=== PATIENT | male | born 1970 | race Caucasian/White ===

== ENCOUNTER 2018-09-23 21:32 | Emergency (ER) | payer OTHER ==
[~2018-09-23] VITALS: Ht 182.9 cm; Wt 85.3 kg
[2018-09-23] MEDS ORDERED: LACTATED RINGERS 1,000 ML IV ONE ×2 (21:51→22:38)
[2018-09-23 22:09] LABS: BASOPHILS # (AUTO) 0.1 10^3/uL (0.0-0.1); BASOPHILS % (AUTO) 0 % (0-10); BILIRUBIN,URINE NEGATIVE (NEGATIVE); CLARITY,URINE CLEAR; COLOR,URINE YELLOW; EOSINOPHILS # (AUTO) 0.1 10^3/uL (0.0-0.3); EOSINOPHILS % (AUTO) 0 % (0-10); GLUCOSE, URINE (UA) NEGATIVE (NEGATIVE); HEMATOCRIT 44 % (40-54); HEMOGLOBIN 15.3 G/DL (13.3-17.7); KETONES,URINE NEGATIVE (NEGATIVE); LEUKOCYTE ESTERASE ,URINE NEGATIVE (NEGATIVE); LYMPHOCYTES # (AUTO) 1.7 X 10^3 (1.0-4.0); LYMPHOCYTES % (AUTO) 10 % (12-44); MEAN CORPUSCULAR HEMOGLOBIN 30 PG (25-34); MEAN CORPUSCULAR HGB CONC 35 G/DL (32-36); MEAN CORPUSCULAR VOLUME 86 FL (80-99); MONOCYTES # (AUTO) 1.4 X 10^3 (0.0-1.0); MONOCYTES % (AUTO) 8 % (0-12); NEUTROPHILS # (AUTO) 13.3 X 10^3 (1.8-7.8); NEUTROPHILS % (AUTO) 81 % (42-75); NITRITE,URINE NEGATIVE (NEGATIVE); PH,URINE 6 (5-9); PLATELET COUNT 372 10^3/uL (130-400); PROTEIN,URINE NEGATIVE (NEGATIVE); RED CELL DISTRIBUTION WIDTH 12.8 % (10.0-14.5); UROBILINOGEN,URINE NORMAL (NORMAL); WHITE BLOOD COUNT 16.5 10^3/uL (4.3-11.0)
[2018-09-23 22:14] LABS: BACTERIA,URINE NEGATIVE /HPF; SQUAMOUS EPITHELIAL CELL,UR RARE /HPF
[2018-09-23] MEDS ORDERED: LACTATED RINGERS 1,000 ML IV SCH (22:15)
[2018-09-23 22:21] LABS: BAND NEUTROPHILS 0 %; BASOPHILS % (MANUAL) 0 %; EOSINOPHILS % (MANUAL) 1 %; LYMPHOCYTES % (MANUAL) 17 %; MONOCYTES % (MANUAL) 8 %; NEUTROPHILS % (MANUAL) 74 %; TOXIC GRANULATION/VACUOLAZATIO 1+
[2018-09-23 22:25] LABS: ALANINE AMINOTRANSFERASE 35 U/L (0-55); ALBUMIN 4.6 GM/DL (3.2-4.5); ALKALINE PHOSPHATASE 71 U/L (40-136); BILIRUBIN,TOTAL 0.4 MG/DL (0.1-1.0); BUN/CREATININE RATIO 12; CALCIUM 9.6 MG/DL (8.5-10.1); CARBON DIOXIDE 17 MMOL/L (21-32); CHLORIDE 95 MMOL/L (98-107); CREATININE SERUM 1.14 MG/DL (0.60-1.30); GFR ESTIMATED > 60; GLUCOSE 108 MG/DL (70-105); POTASSIUM 4.6 MMOL/L (3.6-5.0); TOTAL PROTEIN 7.6 GM/DL (6.4-8.2)
[2018-09-23 22:28] LABS: SODIUM 125 MMOL/L (135-145)
--- NOTE | 2018-09-23 22:45 | ED General ---
General Chief Complaint: Exposure Stated Complaint: WEAKNESS,MUSCLE CRAMPS,DISORIENTED Nursing Triage Note: pt relates outside played tennis from 1730 to 1930 this evening. now c/o bilateral leg " cramping" says he is " disoriented and lethargic". pt alert gcs 15 with no acute sighns of dyspnea noted. pt appears anxious and is slightly hyperventilating in er. Nursing Sepsis Screen: No Definite Risk Source of Information: Patient, Family Exam Limitations: No Limitations History of Present Illness Date Seen by Provider: Sep 23, 2018 Time Seen by Provider: 22:31 Initial Comments Here with report of nausea, vomiting, muscle cramping, diarrhea and feeling a little disoriented after playing tennis in the heat for a few hours this evening. He try to stay hydrated but admits he was sweating a lot. Sometimes he gets cramps when he is playing in the heat. That he is quite impressive today. He did have fluids initiated on arrival and is actually feeling a little better now. Timing/Duration: 1-3 Hours Severity: Moderate Modifying Factors: improves with Immobilization, improves with Rest Associated Systoms: No Cough, No Diaphoresis, No Fever/Chills; Nausea/Vomiting; No Shortness of Air; Weakness Allergies and Home Medications Allergies Coded Allergies: Penicillins (Verified Allergy, Unknown, 09/23/18) Patient Home Medication List Home Medication List Reviewed: Yes Review of Systems Review of Systems Constitutional: see HPI, chills, diaphoresis; No fever Respiratory: no symptoms reported Cardiovascular: no symptoms reported Gastrointestinal: see HPI, abdominal pain, diarrhea, vomiting Genitourinary: no symptoms reported Musculoskeletal: see HPI, muscle pain, muscle cramps, muscle weakness Skin: no symptoms reported Psychiatric/Neurological: See HPI All Other Systems Reviewed Negative Unless Noted: Yes Past Zfewdxq-Yjfjvq-Kfhfhd Hx Past Med/Social Hx: Reviewed Nursing Past Med/Soc Hx Patient Social History Alcohol Use: Occasionally Uses Recreational Drug Use: No Smoking Status: Never a Smoker Recent Foreign Travel: No Contact w/Someone Who Travel: No Recent Infectious Disease Expo: No Physical Abuse: No Sexual Abuse: No Past Medical History Cardiac: Yes High Cholesterol, Hypertension Psychosocial: Yes Anxiety Family Medical History Reviewed and Corrections made Physical Exam Vital Signs Vital Signs - First Documented 09/23/18 21:40 Temp 97.6 Pulse 104 Resp 28 B/P (MAP) 169/122 (138) Pulse Ox 96 O2 Delivery Room Air Capillary Refill : Less Than 3 Seconds Height, Weight, BMI Height: 6'0" Weight: 188lbs. oz. 85.852007ib; BMI Method:Stated General Appearance: WD/WN, Mild Distress HEENT: PERRL/EOMI, Pharynx Normal Neck: Non Tender, Supple Respiratory: Lungs Clear, Normal Breath Sounds Cardiovascular: Regular Rate, Rhythm, No Murmur Gastrointestinal: Non Tender, Soft Back: Normal Inspection, No CVA Tenderness, No Vertebral Tenderness Extremity: Normal Inspection, Normal Range of Motion, Non Tender Neurologic/Psychiatric: Alert, Oriented x3 Skin: Normal Color, Warm/Dry Progress/Results/Core Measures Suspected Sepsis Recent Fever Within 48 Hours: No Infection Criteria Present: None New/Unexplained Altered Menta: Yes Sepsis Screen: No Definite Risk SIRS Temperature:97.6 Pulse: 104 Respiratory Rate: 28 Laboratory Tests 09/23/18 22:00: White Blood Count 16.5H Blood Pressure 169 /122 Mean: 138 Laboratory Tests 09/23/18 22:00: Creatinine 1.14, Platelet Count 372, Total Bilirubin 0.4 Results/Orders Lab Results Laboratory Tests Test 09/23/18 22:00 Range/Units White Blood Count 16.5 H 4.3-11.0 10^3/uL Red Blood Count 5.10 4.35-5.85 10^6/uL Hemoglobin 15.3 13.3-17.7 G/DL Hematocrit 44 40-54 % Mean Corpuscular Volume 86 80-99 FL Mean Corpuscular Hemoglobin 30 25-34 PG Mean Corpuscular Hemoglobin Concent 35 32-36 G/DL Red Cell Distribution Width 12.8 10.0-14.5 % Platelet Count 372 130-400 10^3/uL Mean Platelet Volume 9.0 7.4-10.4 FL Neutrophils (%) (Auto) 81 H 42-75 % Lymphocytes (%) (Auto) 10 L 12-44 % Monocytes (%) (Auto) 8 0-12 % Eosinophils (%) (Auto) 0 0-10 % Basophils (%) (Auto) 0 0-10 % Neutrophils # (Auto) 13.3 H 1.8-7.8 X 10^3 Lymphocytes # (Auto) 1.7 1.0-4.0 X 10^3 Monocytes # (Auto) 1.4 H 0.0-1.0 X 10^3 Eosinophils # (Auto) 0.1 0.0-0.3 10^3/uL Basophils # (Auto) 0.1 0.0-0.1 10^3/uL Neutrophils % (Manual) 74 % Lymphocytes % (Manual) 17 % Monocytes % (Manual) 8 % Eosinophils % (Manual) 1 % Basophils % (Manual) 0 % Band Neutrophils 0 % Toxic Granulation 1+ Urine Color YELLOW Urine Clarity CLEAR Urine pH 6 5-9 Urine Specific [place] 1.010 L 1.016-1.022 Urine Protein NEGATIVE NEGATIVE Urine Glucose (UA) NEGATIVE NEGATIVE Urine Ketones NEGATIVE NEGATIVE Urine Nitrite NEGATIVE NEGATIVE Urine Bilirubin NEGATIVE NEGATIVE Urine Urobilinogen NORMAL NORMAL MG/DL Urine Leukocyte Esterase NEGATIVE NEGATIVE Urine RBC (Auto) NEGATIVE NEGATIVE Urine RBC NONE /HPF Urine WBC NONE /HPF Urine Squamous Epithelial Cells RARE /HPF Urine Crystals NONE /LPF Urine Bacteria NEGATIVE /HPF Urine Casts NONE /LPF Urine Mucus NEGATIVE /LPF Urine Culture Indicated NO Sodium Level 125 *L 135-145 MMOL/L Potassium Level 4.6 3.6-5.0 MMOL/L Chloride Level 95 L 98-107 MMOL/L Carbon Dioxide Level 17 L 21-32 MMOL/L Anion Gap 13 5-14 MMOL/L Blood Urea Nitrogen 14 7-18 MG/DL Creatinine 1.14 0.60-1.30 MG/DL Estimat Glomerular Filtration Rate > 60 BUN/Creatinine Ratio 12 Glucose Level 108 H 70-105 MG/DL Calcium Level 9.6 8.5-10.1 MG/DL Corrected Calcium 8.5-10.1 MG/DL Total Bilirubin 0.4 0.1-1.0 MG/DL Aspartate Amino Transf (AST/SGOT) 29 5-34 U/L Alanine Aminotransferase (ALT/SGPT) 35 0-55 U/L Alkaline Phosphatase 71 40-136 U/L Total Creatine Kinase 278 H 30-200 U/L Total Protein 7.6 6.4-8.2 GM/DL Albumin 4.6 H 3.2-4.5 GM/DL My Orders Orders - MIRIAN RIOJAS MD Lactated Ringers (Lr 1000 Ml Iv Solution (09/23/18 21:51) Lactated Ringers (Lr 1000 Ml Iv Solution (09/23/18 22:15) Ed Iv/Invasive Line Start (09/23/18 22:01) Cbc With Automated Diff (09/23/18 22:01) Comprehensive Metabolic Panel (09/23/18 22:01) Ua Culture If Indicated (09/23/18 22:01) Manual Differential (09/23/18 22:00) Creatine Kinase (09/23/18 22:22) Ed Iv/Invasive Line Start (09/23/18 22:38) Lactated Ringers (Lr 1000 Ml Iv Solution (09/23/18 22:38) Medications Given in ED Current Medications Medications Dose Ordered Sig/Juan A Route Start Time Stop Time Status Last Admin Dose Admin Lactated Ringer's 1,000 ml @ 0 mls/hr Q0M ONCE IV 09/23/18 22:38 09/23/18 22:40 DC 09/23/18 22:42 1,000 MLS/HR Vital Signs/I&O 09/23/18 21:40 Temp 97.6 Pulse 104 Resp 28 B/P (MAP) 169/122 (138) Pulse Ox 96 O2 Delivery Room Air Capillary Refill : Less Than 3 Seconds Blood Pressure Mean: 138 Progress Note : Progress Note Seen and evaluated. IV, labs, LR 1 L bolus ordered. 2245: Repeat LR 1 L bolus. Patient states that he is feeling much better but thinks another liter of fluid would be helpful. Monitor patient. 2324: Improved overall. Discharged home with return precautions. Patient verbalize understanding instructions and agreement with plan. Departure Impression Primary Impression: Heat exhaustion Qualified Codes: T67.5XXA - Heat exhaustion, unspecified, initial encounter Additional Impression: Dehydration Disposition: 01 HOME, SELF-CARE Condition: Improved Departure-Patient Inst. Decision time for Depature: 23:28 Referrals: CHUCKY JAMES DO (PCP/Family) Primary Care Physician Patient Instructions: Heat Exhaustion and Heat Stroke (DC), Dehydration, Adult (DC) Add. Discharge Instructions: All discharge instructions reviewed with patient and/or family. Voiced understanding.\\ Continue to drink adequate amount of fluids and eat a normal diet. Follow-up with your DrJosie in a few days for recheck as needed. Return for worse pain, fever, vomiting, weakness, breathing problems or other concerns as needed. MIRIAN RIOJAS MD Sep 23, 2018 22:45
[2018-09-23 23:35] VITALS: BP 144/88
== END 2018-09-23 23:35 | disposition home or self-care (01) ==
LOC: EDUNIT# 21:32 → ER 21:33
DX: T67.5XXA Heat exhaustion, unspecified, initial encounter (principal); E86.0 Dehydration; E78.00 Pure hypercholesterolemia, unspecified; I10 Essential (primary) hypertension; F41.9 Anxiety disorder, unspecified; R40.2412 Glasgow coma scale score 13-15, at arrival to emergency department; Z88.0 Allergy status to penicillin
CPT/HCPCS: 36415; 80053; 81000; 82550; 85007; 85027

== ENCOUNTER 2018-10-07 19:59 | Emergency (ER) | payer OTHER ==
[~2018-10-07] VITALS: Ht 182.9 cm; Wt 85.3 kg
[2018-10-07] MEDS ORDERED: LACTATED RINGERS 1,000 ML IV ONE (20:12)
--- NOTE | 2018-10-07 20:29 | ED General ---
General Chief Complaint: General Problems/Pain Stated Complaint: CRAMPING IN LEGS / FEET / WEAKNESS Nursing Triage Note: Pt ambulatory to ED with concern of being dehydrated. Pt reports severe dehydration two weeks ago after playing tennis. Pt played tennis again tonight and is complaining of same symptoms as last time. Pt reports leg/foot, shoulder cramps, and chills. Pt reports feeling very anxious. Pt unable to sit during assessment and is pacing room. Nursing Sepsis Screen: No Definite Risk Source of Information: Patient History of Present Illness Date Seen by Provider: Oct 07, 2018 Time Seen by Provider: 20:15 Initial Comments PT ARRIVES VIA POV FROM HOME STATES HE WAS PLAYING TENNIS FROM [id number] TONIGHT, GOT HOME AND AROUND 1914, BEGAN TO HAVE CRAMPING IN FEET, LEGS, SHOULDERS, STOMACH C/O CHILLS--TEMP OF 100 NOTED ON ARRIVAL HAS BEEN DRINKING "ALOT" OF WATER ALL DAY, AND HAD A COUPLE OF BOTTLES OF COCONUT WATER TODAY STATES HE ALWAYS HAS DIARRHEA WHEN HE DRINKS COCONUT WATER, AND DIARRHEA X 1 PORTABLE SAWYER AND X 1 AFTER ARRIVAL HERE NO NAUSEA/VOMITING PT STATES HE HAD THE SAME THING 2 WEEKS AGO AFTER PLAYING TENNIS AND WAS SEEN HERE, 09/23/18--WAS WORSE THAT TIME, AND DID NOT WAIT SO LONG TO COME TO ER STATES HE WAS DEHYDRATED AT THAT TIME. WAS ALSO DX WITH HEAT EXHAUSTION WEATHER WAS NOT HOT TODAY, BUT WAS VERY HUMID PT IS EXTREMELY ANXIOUS AND PACING AND WILL NOT SIT DOWN. IS HYPERVENTILATING ON ARRIVAL. PT DENIES ANY OTHER RECENT ILLNESS OR FEELING ILL PRIOR TO THIS PCP: DR. JAMES Allergies and Home Medications Allergies Coded Allergies: Penicillins (Verified Allergy, Unknown, 09/23/18) Patient Home Medication List Home Medication List Reviewed: Yes Review of Systems Review of Systems Constitutional: see HPI, chills EENTM: no symptoms reported Respiratory: no symptoms reported Cardiovascular: no symptoms reported; No chest pain Gastrointestinal: see HPI, abdominal pain, diarrhea; No nausea, No vomiting Genitourinary: no symptoms reported Musculoskeletal: see HPI, muscle cramps Skin: no symptoms reported Psychiatric/Neurological: Anxiety; Denies Headache, Denies Numbness, Denies Paresthesia, Denies Tingling, Denies Weakness Hematologic/Lymphatic: No Symptoms Reported Immunological/Allergic: no symptoms reported Past Roirotw-Eczkcz-Sqzlur Hx Patient Social History Alcohol Use: Occasionally Uses Recreational Drug Use: No Smoking Status: Never a Smoker Recent Foreign Travel: No Contact w/Someone Who Travel: No Recent Infectious Disease Expo: No Recent Hopitalizations: No Past Medical History Surgeries: Yes Tonsillectomy Respiratory: No Cardiac: Yes High Cholesterol, Hypertension Neurological: No Genitourinary: No Gastrointestinal: No Musculoskeletal: No Endocrine: No HEENT: No Cancer: No Psychosocial: Yes Anxiety Integumentary: No Blood Disorders: No Physical Exam Vital Signs Vital Signs - First Documented 10/07/18 20:04 Temp 100.0 Pulse 102 Resp 22 B/P (MAP) 187/115 (139) Pulse Ox 98 O2 Delivery Room Air Capillary Refill : Less Than 3 Seconds Height, Weight, BMI Height: 6'0" Weight: 188lbs. oz. 85.026174zp; BMI Method:Stated General Appearance: No Apparent Distress, WD/WN, Anxious, Other (VERY ANXIOUS, PACING, WILL NOT SIT DOWN. ) Neck: Normal Inspection Respiratory: Normal Breath Sounds, Other (HYPERVENTILATING) Cardiovascular: No Edema, No Murmur, Tachycardia Gastrointestinal: Non Tender, Soft Extremity: Normal Inspection Neurologic/Psychiatric: Alert, Oriented x3, No Motor/Sensory Deficits, outside machinist helper II- XII Norm as Tested Skin: Normal Color, Warm/Dry Focused Exam Lactate Level 10/07/18 20:33: Lactic Acid Level 2.30*H Lactic Acid Level Progress/Results/Core Measures Suspected Sepsis Recent Fever Within 48 Hours: No Infection Criteria Present: None New/Unexplained Altered Menta: No Sepsis Screen: No Definite Risk SIRS Temperature:100.0 Pulse: 102 Respiratory Rate: 22 Laboratory Tests 10/07/18 20:33: White Blood Count 10.4 Blood Pressure 187 /115 Mean: 139 10/07/18 20:33: Lactic Acid Level 2.30*H Laboratory Tests 10/07/18 20:33: Creatinine 1.17, INR Comment 1.0, Platelet Count 374, Total Bilirubin 0.4 Results/Orders Lab Results Laboratory Tests Test 10/07/18 20:20 10/07/18 20:25 10/07/18 20:33 Range/Units Urine Color YELLOW Urine Clarity CLEAR Urine pH 5 5-9 Urine Specific [place] 1.015 L 1.016-1.022 Urine Protein NEGATIVE NEGATIVE Urine Glucose (UA) NEGATIVE NEGATIVE Urine Ketones NEGATIVE NEGATIVE Urine Nitrite NEGATIVE NEGATIVE Urine Bilirubin NEGATIVE NEGATIVE Urine Urobilinogen NORMAL NORMAL MG/DL Urine Leukocyte Esterase NEGATIVE NEGATIVE Urine RBC (Auto) 1+ H NEGATIVE Urine RBC RARE /HPF Urine WBC NONE /HPF Urine Squamous Epithelial Cells RARE /HPF Urine Crystals NONE /LPF Urine Bacteria TRACE /HPF Urine Casts PRESENT /LPF Urine Hyaline Casts 5-10 H /LPF Urine Mucus SMALL H /LPF Urine Culture Indicated NO Urine Opiates Screen NEGATIVE NEGATIVE Urine Oxycodone Screen NEGATIVE NEGATIVE Urine Methadone Screen NEGATIVE NEGATIVE Urine Propoxyphene Screen NEGATIVE NEGATIVE Urine Barbiturates Screen NEGATIVE NEGATIVE Ur Tricyclic Antidepressants Screen NEGATIVE NEGATIVE Urine Phencyclidine Screen NEGATIVE NEGATIVE Urine Amphetamines Screen NEGATIVE NEGATIVE Urine Methamphetamines Screen NEGATIVE NEGATIVE Urine Benzodiazepines Screen NEGATIVE NEGATIVE Urine Cocaine Screen NEGATIVE NEGATIVE Urine Cannabinoids Screen NEGATIVE NEGATIVE Group A Streptococcus Screen NEGATIVE NEGATIVE White Blood Count 10.4 4.3-11.0 10^3/uL Red Blood Count 5.14 4.35-5.85 10^6/uL Hemoglobin 15.5 13.3-17.7 G/DL Hematocrit 44 40-54 % Mean Corpuscular Volume 86 80-99 FL Mean Corpuscular Hemoglobin 30 25-34 PG Mean Corpuscular Hemoglobin Concent 35 32-36 G/DL Red Cell Distribution Width 12.7 10.0-14.5 % Platelet Count 374 130-400 10^3/uL Mean Platelet Volume 9.3 7.4-10.4 FL Neutrophils (%) (Auto) 70 42-75 % Lymphocytes (%) (Auto) 20 12-44 % Monocytes (%) (Auto) 8 0-12 % Eosinophils (%) (Auto) 1 0-10 % Basophils (%) (Auto) 0 0-10 % Neutrophils # (Auto) 7.3 1.8-7.8 X 10^3 Lymphocytes # (Auto) 2.1 1.0-4.0 X 10^3 Monocytes # (Auto) 0.8 0.0-1.0 X 10^3 Eosinophils # (Auto) 0.1 0.0-0.3 10^3/uL Basophils # (Auto) 0.0 0.0-0.1 10^3/uL Prothrombin Time 13.5 12.2-14.7 SEC INR Comment 1.0 0.8-1.4 Activated Partial Thromboplast Time 31 24-35 SEC Sodium Level 129 L 135-145 MMOL/L Potassium Level 4.2 3.6-5.0 MMOL/L Chloride Level 96 L 98-107 MMOL/L Carbon Dioxide Level 19 L 21-32 MMOL/L Anion Gap 14 5-14 MMOL/L Blood Urea Nitrogen 15 7-18 MG/DL Creatinine 1.17 0.60-1.30 MG/DL Estimat Glomerular Filtration Rate > 60 BUN/Creatinine Ratio 13 Glucose Level 112 H 70-105 MG/DL Lactic Acid Level 2.30 *H 0.50-2.00 MMOL/L Calcium Level 9.8 8.5-10.1 MG/DL Corrected Calcium 8.5-10.1 MG/DL Magnesium Level 1.5 L 1.6-2.4 MG/DL Total Bilirubin 0.4 0.1-1.0 MG/DL Aspartate Amino Transf (AST/SGOT) 24 5-34 U/L Alanine Aminotransferase (ALT/SGPT) 23 0-55 U/L Alkaline Phosphatase 75 40-136 U/L Total Creatine Kinase 172 30-200 U/L Creatine Kinase MB 2.0 <6.6 NG/ML Myoglobin 106.9 H 10.0-92.0 NG/ML Troponin I < 0.028 <0.028 NG/ML B-Type Natriuretic Peptide < 10.0 <100.0 PG/ML Total Protein 7.8 6.4-8.2 GM/DL Albumin 4.7 H 3.2-4.5 GM/DL Amylase Level 56 25-125 U/L Lipase 21 8-78 U/L Thyroid Stimulating Hormone (TSH) 1.53 0.35-4.94 UIU/ML Serum Alcohol < 10 <10 MG/DL Monoscreen NEGATIVE NEGATIVE Micro Results Microbiology 10/07/18 Influenza Types A,B Antigen (CAROL) - Final, Complete My Orders Orders - RONAL OBRIEN DO Ed Iv/Invasive Line Start (10/07/18 20:12) Ekg Tracing (10/07/18 20:12) Monitor-Rhythm Ecg Trace Only (10/07/18 20:12) Orthostatic Vital Signs (Adult (10/07/18 20:12) Cbc With Automated Diff (10/07/18 20:12) Comprehensive Metabolic Panel (10/07/18 20:12) Creatine Kinase (10/07/18 20:12) Creatine Kinase Mb (10/07/18 20:12) Magnesium (10/07/18 20:12) Thyroid Stimulating Hormone (10/07/18 20:12) Ua Culture If Indicated (10/07/18 20:12) Myoglobin Serum (10/07/18 20:12) Ed Iv/Invasive Line Start (10/07/18 20:12) Lactated Ringers (Lr 1000 Ml Iv Solution (10/07/18 20:12) BNP (10/07/18 20:12) Protime With Inr (10/07/18 20:12) Partial Thromboplastin Time (10/07/18 20:12) Troponin I (10/07/18 20:12) Alcohol (10/07/18 20:16) Amylase (10/07/18 20:16) Drug Screen Stat (Urine) (10/07/18 20:16) Lactic Acid Analyzer (10/07/18 20:16) Lipase (10/07/18 20:16) Monotest (10/07/18 20:16) Rapid Strep A Screen (10/07/18 20:16) Blood Culture (10/07/18 20:16) Influenza A And B Antigens (10/07/18 20:16) Lactated Ringers (Lr 1000 Ml Iv Solution (10/07/18 21:45) Magnesium Oxide Tablet (Mag Ox Tablet) (10/07/18 21:45) Magnesium 1 Gm/100 Ml Ivpb (Magnesium John (10/07/18 21:45) Ed Iv/Invasive Line Start (10/07/18 21:46) Ns Iv 1000 Ml (Sodium Chloride 0.9%) (10/07/18 21:46) Ns Iv 1000 Ml (Sodium Chloride 0.9%) (10/07/18 21:39) Medications Given in ED Current Medications Medications Dose Ordered Sig/Juan A Route Start Time Stop Time Status Last Admin Dose Admin Lactated Ringer's 1,000 ml @ 0 mls/hr Q0M ONCE IV 10/07/18 20:12 10/07/18 20:15 DC 10/07/18 20:35 1,000 MLS/HR Magnesium Oxide 1,200 mg ONCE ONCE PO 10/07/18 21:45 10/07/18 23:18 DC 10/07/18 21:52 1,200 MG Magnesium Sulfate/ Dextrose 100 ml @ 100 mls/hr ONCE ONCE IV 10/07/18 21:45 10/07/18 23:18 DC 10/07/18 21:50 100 MLS/HR Sodium Chloride 1,000 ml @ 0 mls/hr Q0M ONCE IV 10/07/18 21:46 10/07/18 21:47 DC 10/07/18 22:33 0 MLS/HR Vital Signs/I&O 10/07/18 10/07/18 10/07/18 20:04 21:57 23:26 Temp 100.0 96.6 96.6 Pulse 102 102 Resp 22 22 B/P (MAP) 187/115 (139) 187/115 (139) Pulse Ox 98 98 O2 Delivery Room Air 10/08/18 00:00 Intake Total 2000 ml Balance 2000 ml Capillary Refill : Less Than 3 Seconds Blood Pressure Mean: 139 Progress Note : Progress Note PT DECLINES CXR FEELING MUCH BETTER AFTER FIRST LITER OF FLUIDS, BUT THINKS HE NEEDS MORE. PT MUCH CALMER TEMP DOWN WITHOUT TREATMENT OTHER THAN FLUIDS--MAY BE RELATED TO RECENT PHYSICAL ACTIVITY, AND PT'S CONTINUED CONSTANT MOVEMENTS FEELING MUCH BETTER AT DISMISSAL BP DOWN AT DISMISSAL ECG Initial ECG Impression Date: Oct 07, 2018 Initial ECG Impression Time: 20:27 Initial ECG Rate: 101 Initial ECG Rhythm: Normal Sinus Departure Impression Primary Impression: Electrolyte imbalance Additional Impressions: Hyponatremia Hypomagnesemia HTN (hypertension) Disposition: 01 HOME, SELF-CARE Condition: Improved Departure-Patient Inst. Referrals: CHUCKY JAMES DO (PCP/Family) Primary Care Physician Patient Instructions: Hyponatremia (DC), Low Magnesium Level (DC) Add. Discharge Instructions: DRINK EQUAL AMOUNTS OF WATER AND GATORADE--DRINK ENOUGH SO YOU ARE URINATING EVERY 2-3 HOURS TYLENOL AND MOTRIN NEEDED FOR PAIN FOLLOW UP WITH DR. JAMES NEXT WEEK FOR FURTHER CARE All discharge instructions reviewed with patient and/or family. Voiced understanding. RONAL OBRIEN DO Oct 07, 2018 20:28
[2018-10-07 20:47] LABS: BILIRUBIN,URINE NEGATIVE (NEGATIVE); CLARITY,URINE CLEAR; COLOR,URINE YELLOW; GLUCOSE, URINE (UA) NEGATIVE (NEGATIVE); KETONES,URINE NEGATIVE (NEGATIVE); LEUKOCYTE ESTERASE ,URINE NEGATIVE (NEGATIVE); NITRITE,URINE NEGATIVE (NEGATIVE); PH,URINE 5 (5-9); PROTEIN,URINE NEGATIVE (NEGATIVE); UROBILINOGEN,URINE NORMAL (NORMAL)
[2018-10-07 20:51] LABS: BASOPHILS % (AUTO) 0 % (0-10); EOSINOPHILS # (AUTO) 0.1 10^3/uL (0.0-0.3); EOSINOPHILS % (AUTO) 1 % (0-10); HEMATOCRIT 44 % (40-54); HEMOGLOBIN 15.5 G/DL (13.3-17.7); LYMPHOCYTES # (AUTO) 2.1 X 10^3 (1.0-4.0); LYMPHOCYTES % (AUTO) 20 % (12-44); MEAN CORPUSCULAR HEMOGLOBIN 30 PG (25-34); MEAN CORPUSCULAR HGB CONC 35 G/DL (32-36); MEAN CORPUSCULAR VOLUME 86 FL (80-99); MEAN PLATELET VOLUME 9.3 FL (7.4-10.4); MONOCYTES # (AUTO) 0.8 X 10^3 (0.0-1.0); MONOCYTES % (AUTO) 8 % (0-12); NEUTROPHILS # (AUTO) 7.3 X 10^3 (1.8-7.8); NEUTROPHILS % (AUTO) 70 % (42-75); PLATELET COUNT 374 10^3/uL (130-400); RED CELL DISTRIBUTION WIDTH 12.7 % (10.0-14.5); WHITE BLOOD COUNT 10.4 10^3/uL (4.3-11.0)
[2018-10-07 20:53] LABS: BACTERIA,URINE TRACE /HPF; RBC,URINE RARE /HPF
[2018-10-07 20:54] LABS: SQUAMOUS EPITHELIAL CELL,UR RARE /HPF
[2018-10-07 20:59] LABS: PROTHROMBIN TIME PATIENT 13.5 SEC (12.2-14.7)
[2018-10-07 21:01] LABS: AMPHETAMINE SCREEN, URINE NEGATIVE (NEGATIVE); BARBITURATE SCREEN URINE NEGATIVE (NEGATIVE); BENZODIAZEPINES SCREEN URINE NEGATIVE (NEGATIVE); CANNABINOID SCREEN, URINE NEGATIVE (NEGATIVE); COCAINE SCREEN URINE NEGATIVE (NEGATIVE); METHADONE STAT NEGATIVE (NEGATIVE); METHAMPHETAMINE SCREEN URINE S NEGATIVE (NEGATIVE); OPIATE SCREEN URINE NEGATIVE (NEGATIVE); OXYCODONE STAT NEGATIVE (NEGATIVE); PROPOXYPHENE STAT NEGATIVE (NEGATIVE); TRICYCLIC ANTIDEPRESSANTS SCRE NEGATIVE (NEGATIVE)
[2018-10-07 21:07] LABS: ALANINE AMINOTRANSFERASE 23 U/L (0-55); ALBUMIN 4.7 GM/DL (3.2-4.5); ALKALINE PHOSPHATASE 75 U/L (40-136); AMYLASE 56 U/L (25-125); BILIRUBIN,TOTAL 0.4 MG/DL (0.1-1.0); BUN/CREATININE RATIO 13; CALCIUM 9.8 MG/DL (8.5-10.1); CARBON DIOXIDE 19 MMOL/L (21-32); CHLORIDE 96 MMOL/L (98-107); CREATINE KINASE 172 U/L (30-200); CREATININE SERUM 1.17 MG/DL (0.60-1.30); GFR ESTIMATED > 60; GLUCOSE 112 MG/DL (70-105); LIPASE 21 U/L (8-78); MAGNESIUM 1.5 MG/DL (1.6-2.4); POTASSIUM 4.2 MMOL/L (3.6-5.0); SODIUM 129 MMOL/L (135-145); TOTAL PROTEIN 7.8 GM/DL (6.4-8.2)
[2018-10-07] MEDS ORDERED: NS IV 1000 ML 1,000 ML ONE (21:39)
[2018-10-07] MEDS ORDERED: MAGNESIUM OXIDE (MAG-OX)400 MG TAB PO ONE (21:45)
[2018-10-07] MEDS ORDERED: LACTATED RINGERS 1,000 ML IV SCH (21:45)
[2018-10-07] MEDS ORDERED: MAGNESIUM 1 GM/100 ML IVPB 100 ML IV ONE (21:45)
[2018-10-07] MEDS ORDERED: NS IV 1000 ML 1,000 ML IV ONE (21:46)
[2018-10-07 23:26] VITALS: BP 187/115
== END 2018-10-07 23:22 | disposition home or self-care (01) ==
LOC: EDUNIT# 19:59 → ER 20:00
DX: E87.8 Other disorders of electrolyte and fluid balance, not elsewhere classified (principal); E87.1 Hypo-osmolality and hyponatremia; E83.42 Hypomagnesemia; I10 Essential (primary) hypertension; E78.00 Pure hypercholesterolemia, unspecified; F41.9 Anxiety disorder, unspecified; Z88.0 Allergy status to penicillin
CPT/HCPCS: 36415; 80053; 80306; 80320; 81000; 82150; 82550; 82553; 83605; 83690; 83735; 83874; 83880; 84443; 84484; 85025; 85610; 85730; 86308; 87040; 87430; 87804; 93005; 93041

== ENCOUNTER 2018-10-14 18:33 | Emergency (ER) | payer OTHER ==
[~2018-10-14] VITALS: Ht 182.9 cm; Wt 85.3 kg
[2018-10-14] MEDS ORDERED: SERT50TA9 (18:48)
[2018-10-14] MEDS ORDERED: LISI10TA2 (18:48)
[2018-10-14] MEDS ORDERED: MAGN200T8 PO (18:48)
[2018-10-14] MEDS ORDERED: LOVA10TA (18:48)
[2018-10-14] MEDS ORDERED: POTA99TA21 PO (18:48)
[2018-10-14] MEDS ORDERED: NS IV 1000 ML 1,000 ML IV ONE (19:08)
[2018-10-14 19:18] LABS: BASOPHILS % (AUTO) 0 % (0-10); EOSINOPHILS % (AUTO) 0 % (0-10); HEMATOCRIT 47 % (40-54); HEMOGLOBIN 16.7 G/DL (13.3-17.7); LYMPHOCYTES # (AUTO) 1.3 X 10^3 (1.0-4.0); LYMPHOCYTES % (AUTO) 11 % (12-44); MEAN CORPUSCULAR HEMOGLOBIN 31 PG (25-34); MEAN CORPUSCULAR HGB CONC 36 G/DL (32-36); MEAN CORPUSCULAR VOLUME 86 FL (80-99); MEAN PLATELET VOLUME 9.3 FL (7.4-10.4); MONOCYTES # (AUTO) 0.5 X 10^3 (0.0-1.0); MONOCYTES % (AUTO) 4 % (0-12); NEUTROPHILS % (AUTO) 84 % (42-75); PLATELET COUNT 362 10^3/uL (130-400); RED CELL DISTRIBUTION WIDTH 12.3 % (10.0-14.5); WHITE BLOOD COUNT 11.9 10^3/uL (4.3-11.0)
[2018-10-14 19:22] LABS: BILIRUBIN,URINE NEGATIVE (NEGATIVE); CLARITY,URINE CLEAR; COLOR,URINE YELLOW; GLUCOSE, URINE (UA) NEGATIVE (NEGATIVE); KETONES,URINE NEGATIVE (NEGATIVE); LEUKOCYTE ESTERASE ,URINE NEGATIVE (NEGATIVE); NITRITE,URINE NEGATIVE (NEGATIVE); PH,URINE 7 (5-9); PROTEIN,URINE NEGATIVE (NEGATIVE); UROBILINOGEN,URINE NORMAL (NORMAL)
[2018-10-14 19:26] LABS: BACTERIA,URINE NEGATIVE /HPF
--- NOTE | 2018-10-14 19:34 | ED General ---
General Chief Complaint: Abdominal/GI Problems Stated Complaint: DEHYDRATED Nursing Triage Note: pt has had diarrhea x4 today. has been having diffuculty keeping electrolytes in balance after activity for past few weeks, states feels like may start having cramping in ext Nursing Sepsis Screen: No Definite Risk Source of Information: Patient Exam Limitations: No Limitations History of Present Illness Date Seen by Provider: Oct 14, 2018 Time Seen by Provider: 18:57 Initial Comments This 48-year-old gentleman presents to the emergency room with concerns about electrolyte disturbances. He has been seen twice in the month of September for hyponatremia and hypomagnesemia as well as possible dehydration. The first 2 incidences occurred after playing tennis. He presented to the ER and was hydrated and electrolytes were replaced. He had significant hyponatremia. He was also low on magnesium and had a mildly elevated creatinine kinase. He does not know what is causing the problem. He intends to follow-up with Dr. Arenas to address the issue further. He takes lisinopril without hydrochlorothiazide, Zoloft, and lovastatin. He has had no recent changes to these medications. He does drink alcohol frequently but states this is never more than 2 drinks at a time. This morning he did some yard work and began to feel dehydrated and started to cramp. He presumed his magnesium was low again. He took a couple of magnesium tablets which then caused diarrhea. He appears mildly anxious. He is mildly tachycardic during assessment. Allergies and Home Medications Allergies Coded Allergies: Penicillins (Verified Allergy, Unknown, 09/23/18) Home Medications Magnesium Oxide 200 Mg Tablet, 200 MG PO 2 today, (Reported) Potassium Gluconate 99 Mg Tablet, 99 MG PO 2 today, (Reported) Patient Home Medication List Home Medication List Reviewed: Yes Review of Systems Review of Systems Constitutional: see HPI EENTM: no symptoms reported Respiratory: no symptoms reported Cardiovascular: see HPI Gastrointestinal: see HPI Genitourinary: no symptoms reported Musculoskeletal: see HPI Skin: no symptoms reported Psychiatric/Neurological: See HPI Hematologic/Lymphatic: No Symptoms Reported Past Gunniiz-Fjbqhp-Cybysd Hx Past Med/Social Hx: Reviewed and Corrections made Patient Social History Alcohol Use: Denies Use Recreational Drug Use: No Smoking Status: Never a Smoker Recent Foreign Travel: No Contact w/Someone Who Travel: No Recent Infectious Disease Expo: No Recent Hopitalizations: No Past Medical History Surgeries: Yes Tonsillectomy Respiratory: No Cardiac: Yes High Cholesterol, Hypertension Neurological: No Genitourinary: No Gastrointestinal: No Musculoskeletal: No Endocrine: Yes (electrolyte disturbances including hyponatremia and hypomagnesemia) HEENT: No Cancer: No Psychosocial: Yes Anxiety Integumentary: No Blood Disorders: No Physical Exam Vital Signs Vital Signs - First Documented 10/14/18 18:40 Temp 96.3 Pulse 101 Resp 20 B/P (MAP) 164/104 (124) Pulse Ox 97 Capillary Refill : Less Than 3 Seconds Height, Weight, BMI Height: 6'0" Weight: 188lbs. oz. 85.569678za; BMI Method:Stated General Appearance: WD/WN, Anxious HEENT: PERRL/EOMI, Normal ENT Inspection, Pharynx Normal Neck: Normal Inspection Respiratory: Lungs Clear, Normal Breath Sounds, No Accessory Muscle Use, No Respiratory Distress Cardiovascular: No Edema, No Murmur, Tachycardia (regular) Gastrointestinal: Normal Bowel Sounds, Non Tender, Soft Extremity: Normal Inspection, No Pedal Edema Neurologic/Psychiatric: Alert, Oriented x3, No Motor/Sensory Deficits, life enrichment director II- XII Norm as Tested, Other (mildly anxious) Skin: Normal Color, Warm/Dry Progress/Results/Core Measures Suspected Sepsis Recent Fever Within 48 Hours: No Infection Criteria Present: None New/Unexplained Altered Menta: No Sepsis Screen: No Definite Risk SIRS Temperature:96.3 Pulse: 101 Respiratory Rate: 20 Laboratory Tests 10/14/18 19:03: White Blood Count 11.9H Blood Pressure 164 /104 Mean: 124 Laboratory Tests 10/14/18 19:03: Creatinine 0.96, Platelet Count 362, Total Bilirubin 0.3 Results/Orders Lab Results Laboratory Tests Test 10/14/18 19:01 10/14/18 19:03 Range/Units Urine Color YELLOW Urine Clarity CLEAR Urine pH 7 5-9 Urine Specific [place] 1.005 L 1.016-1.022 Urine Protein NEGATIVE NEGATIVE Urine Glucose (UA) NEGATIVE NEGATIVE Urine Ketones NEGATIVE NEGATIVE Urine Nitrite NEGATIVE NEGATIVE Urine Bilirubin NEGATIVE NEGATIVE Urine Urobilinogen NORMAL NORMAL MG/DL Urine Leukocyte Esterase NEGATIVE NEGATIVE Urine RBC (Auto) 1+ H NEGATIVE Urine RBC 2-5 H /HPF Urine WBC NONE /HPF Urine Squamous Epithelial Cells NONE /HPF Urine Crystals NONE /LPF Urine Bacteria NEGATIVE /HPF Urine Casts NONE /LPF Urine Mucus NEGATIVE /LPF Urine Culture Indicated NO White Blood Count 11.9 H 4.3-11.0 10^3/uL Red Blood Count 5.47 4.35-5.85 10^6/uL Hemoglobin 16.7 13.3-17.7 G/DL Hematocrit 47 40-54 % Mean Corpuscular Volume 86 80-99 FL Mean Corpuscular Hemoglobin 31 25-34 PG Mean Corpuscular Hemoglobin Concent 36 32-36 G/DL Red Cell Distribution Width 12.3 10.0-14.5 % Platelet Count 362 130-400 10^3/uL Mean Platelet Volume 9.3 7.4-10.4 FL Neutrophils (%) (Auto) 84 H 42-75 % Lymphocytes (%) (Auto) 11 L 12-44 % Monocytes (%) (Auto) 4 0-12 % Eosinophils (%) (Auto) 0 0-10 % Basophils (%) (Auto) 0 0-10 % Neutrophils # (Auto) 10.0 H 1.8-7.8 X 10^3 Lymphocytes # (Auto) 1.3 1.0-4.0 X 10^3 Monocytes # (Auto) 0.5 0.0-1.0 X 10^3 Eosinophils # (Auto) 0.0 0.0-0.3 10^3/uL Basophils # (Auto) 0.0 0.0-0.1 10^3/uL Sodium Level 137 135-145 MMOL/L Potassium Level 4.2 3.6-5.0 MMOL/L Chloride Level 103 98-107 MMOL/L Carbon Dioxide Level 20 L 21-32 MMOL/L Anion Gap 14 5-14 MMOL/L Blood Urea Nitrogen 11 7-18 MG/DL Creatinine 0.96 0.60-1.30 MG/DL Estimat Glomerular Filtration Rate > 60 BUN/Creatinine Ratio 11 Glucose Level 121 H 70-105 MG/DL Calcium Level 9.7 8.5-10.1 MG/DL Corrected Calcium 8.5-10.1 MG/DL Magnesium Level 2.2 1.6-2.4 MG/DL Total Bilirubin 0.3 0.1-1.0 MG/DL Aspartate Amino Transf (AST/SGOT) 30 5-34 U/L Alanine Aminotransferase (ALT/SGPT) 39 0-55 U/L Alkaline Phosphatase 83 40-136 U/L Total Creatine Kinase 145 30-200 U/L Total Protein 8.1 6.4-8.2 GM/DL Albumin 4.8 H 3.2-4.5 GM/DL Lipase 20 8-78 U/L Serum Alcohol < 10 <10 MG/DL My Orders Orders - HE BRASWELL MD Cbc With Automated Diff (10/14/18 18:55) Comprehensive Metabolic Panel (10/14/18 18:55) Lipase (10/14/18 18:55) Ua Culture If Indicated (10/14/18 18:55) Ed Iv/Invasive Line Start (10/14/18 18:55) Creatine Kinase (10/14/18 19:04) Magnesium (10/14/18 19:04) Ns Iv 1000 Ml (Sodium Chloride 0.9%) (10/14/18 19:08) Alcohol (10/14/18 19:38) Medications Given in ED Current Medications Medications Dose Ordered Sig/Juan A Route Start Time Stop Time Status Last Admin Dose Admin Sodium Chloride 1,000 ml @ 0 mls/hr Q0M ONCE IV 10/14/18 19:08 10/14/18 19:09 DC 10/14/18 19:10 1,000 MLS/HR Vital Signs/I&O 10/14/18 18:40 Temp 96.3 Pulse 101 Resp 20 B/P (MAP) 164/104 (124) Pulse Ox 97 Capillary Refill : Less Than 3 Seconds Blood Pressure Mean: 124 Progress Note #1: Time: 19:34 Progress Note Patient was seen and examined. A liter of IV normal saline was ordered. Chart was reviewed and he was found to have hyponatremia, hypomagnesemia and mild elevation in creatinine kinase on prior visits. We are checking his el ectrolytes. I reviewed his medications. I suspect he is having these issues due to multifactorial etiologies. His alcohol consumption and his medications are likely contributing. Progress Note #2: Time: 20:19 Progress Note Labs today were unremarkable. I suspect patient's prior episodes were caused by multifactorial etiologies. He likely had hypovolemia and electrolyte disturbances secondary to exertion/sweating. Hyponatremia and rhabdomyolysis can also be associated with sertraline. Alcohol consumption may have also played a role, especially with hyponatremia. He is accustomed to having 2 drinks most days of the week. He may have some degree of alcohol dependence. I discussed the multifactorial nature of his health problems and he seemed to express understanding. I believe his symptoms today are largely due to anxiety given the significant discomfort he was in with the prior episodes of electrolyte disturbances. I spent a significant amount of time with the patient discussing these issues. At one point during his visit today he seemed to be hyperventilating. A nonrebreather mask without oxygen flow was applied which seemed to improve his anxiety and resolve his hyperventilating and cramping. I advised the patient to seek counseling to learn some healthy coping mechanisms for managing anxiety and returning to healthy activities of daily living such as exercise, yard work, etc. Patient and his seem to be accepting of these explanations and recommendations. He did receive 1 L of IV normal saline during his stay. Departure Impression Primary Impression: Anxiety Additional Impressions: Muscle cramping Diarrhea Qualified Codes: R19.7 - Diarrhea, unspecified history of electrolyte abnormalities Disposition: HOME, SELF-CARE Condition: Improved Departure-Patient Inst. Decision time for Depature: 20:16 Referrals: CHUCKY ARENAS DO (PCP/Family) Primary Care Physician Patient Instructions: Hyponatremia Add. Discharge Instructions: Your electrolytes today are normal. Eat a well balanced diet and drink plenty of water. If you are exerting yourself or in a hot environment inducing significant sweating, consider replacing electrolytes with Pedialyte or sports drinks. Work toward reduction of alcohol consumption. Do not abruptly stop alcohol or your sertraline as this may cause disturbing or dangerous withdraw symptoms. Taper down on alcohol gradually. Keep your follow-up appointment with Dr. Arenas. Discuss your medications as some of your symptoms may be related, at least in part, to adverse reactions of your medications. Consider seeing a counselor to discuss coping mechanisms for your anxiety to help you comfortably engage in healthy activities of daily living. Return to the emergency room if you have worsening symptoms. All discharge instructions reviewed with patient and/or family. Voiced understanding. HE BRASWELL MD Oct 14, 2018 19:34
[2018-10-14 19:41] LABS: ALANINE AMINOTRANSFERASE 39 U/L (0-55); ALBUMIN 4.8 GM/DL (3.2-4.5); ALKALINE PHOSPHATASE 83 U/L (40-136); BILIRUBIN,TOTAL 0.3 MG/DL (0.1-1.0); CALCIUM 9.7 MG/DL (8.5-10.1); CARBON DIOXIDE 20 MMOL/L (21-32); CREATINE KINASE 145 U/L (30-200); GLUCOSE 121 MG/DL (70-105); LIPASE 20 U/L (8-78); MAGNESIUM 2.2 MG/DL (1.6-2.4); TOTAL PROTEIN 8.1 GM/DL (6.4-8.2)
[2018-10-14 19:51] LABS: BUN/CREATININE RATIO 11; CHLORIDE 103 MMOL/L (98-107); CREATININE SERUM 0.96 MG/DL (0.60-1.30); GFR ESTIMATED > 60; POTASSIUM 4.2 MMOL/L (3.6-5.0); SODIUM 137 MMOL/L (135-145)
[2018-10-14 20:36] VITALS: BP 152/100
== END 2018-10-14 20:35 | disposition home or self-care (01) ==
LOC: EDUNIT# 18:33 → ER 18:34
DX: F41.9 Anxiety disorder, unspecified (principal); R25.2 Cramp and spasm; R19.7 Diarrhea, unspecified; I10 Essential (primary) hypertension; E78.00 Pure hypercholesterolemia, unspecified; Z86.39 Personal history of other endocrine, nutritional and metabolic disease; Z88.0 Allergy status to penicillin; Z90.89 Acquired absence of other organs
CPT/HCPCS: 36415; 80053; 80320; 81000; 82550; 83690; 83735; 85025

== ENCOUNTER → 2019-01-03 | Outpatient (CLI) | payer OTHER ==
[~2019-01-03] VITALS: Ht 182 cm; Wt 85.0 kg
[~2019-01-03] MED LIST: CATHETER FLUSH 10 ML SYR IV PRN; LISI10TA2; LOVA10TA; MAGN200T8 PO; POTA99TA21 PO; SERT50TA9
--- NOTE | 2019-01-14 15:55 | Cardiology Stress Test Report ---
Stress Test Report Type of NM Stress Test: Test Type: NUCLEAR TREADMILL Date of Procedure/Referring: Date of Procedure: Jan 03, 2019 PCP Maynor Arenas DO Admitting Physician Maynor Arenas DO Indications: Shortness of breath Summary & Conclusion: Summary: The patient was brought to the stress lab after informed consent was taken. Please see Dr. Arenas's note for report on the stress test. 10.42 mCi of Myoview were given for rest imaging and 32.0 mCi of Myoview given for stress imaging. Transient ischemic dilatation score 1.08, EF 57 percent. Normal wall motion. Normal myocardial perfusion imaging during rest and stress. Conclusion: Normal LV function with no wall motion abnormalities. Normal myocardial perfusion imaging during rest and stress. Jean Pierre MARTINEZ MD Jan 14, 2019 15:55 POS
== END ==
LOC: CARD 06:32
PROVIDERS: ATTEND Internal Medicine
DX: I10 Essential (primary) hypertension (principal); R06.02 Shortness of breath; Z87.898 Personal history of other specified conditions
CPT/HCPCS: 78452; 93017

== ENCOUNTER 2019-07-21 15:37 | Outpatient (CLI) | payer OTHER ==
[~2019-07-21] VITALS: Ht 182.9 cm; Wt 84.9 kg
[~2019-07-21 15:37] MED LIST changes: -CATHETER FLUSH 10 ML SYR IV PRN
[2019-07-21] MEDS ORDERED: LACTATED RINGERS 2,000 ML IV ONE (15:46)
[2019-07-21] MEDS ORDERED: FENO200C PO (16:17)
[2019-07-21] MEDS ORDERED: MULT-1136 PO (16:19)
[2019-07-21] MEDS ORDERED: UBID10CA5 PO (16:19)
[2019-07-21] MEDS ORDERED: SERT25TA5 PO (16:19)
[2019-07-21 16:26] VITALS: BP 173/116
[2019-07-21 16:26] LABS: ALBUMIN 4.8 GM/DL (3.2-4.5); CHLORIDE 104 MMOL/L (98-107); POTASSIUM 3.8 MMOL/L (3.6-5.0); SODIUM 137 MMOL/L (135-145)
[2019-07-21 16:27] LABS: CALCIUM 9.9 MG/DL (8.5-10.1)
[2019-07-21 16:28] LABS: GLUCOSE 106 MG/DL (70-105)
[2019-07-21 16:29] LABS: TOTAL PROTEIN 7.8 GM/DL (6.4-8.2)
[2019-07-21 16:30] LABS: BILIRUBIN,TOTAL 0.7 MG/DL (0.1-1.0); CARBON DIOXIDE 21 MMOL/L (21-32)
[2019-07-21 16:32] LABS: ALKALINE PHOSPHATASE 55 U/L (40-136); CREATININE SERUM 0.89 MG/DL (0.60-1.30); GFR ESTIMATED > 60
[2019-07-21 16:33] LABS: BUN/CREATININE RATIO 11
[2019-07-21 16:35] LABS: ALANINE AMINOTRANSFERASE 25 U/L (0-55); MAGNESIUM 2.1 MG/DL (1.6-2.4)
[2019-07-21 16:36] LABS: CREATINE KINASE 150 U/L (30-200)
--- NOTE | 2019-07-21 16:45 | NUR ---
PT AMBULATED TO BATHROOM TO VOID. IVF/PUMP INTACT. AT BEDSIDE.
--- NOTE | 2019-07-21 17:30 | NUR ---
PT AMBULATED TO BATHROOM. IVF/PUMP INTACT. REMAINS AT BEDSIDE.
== END 2019-07-21 18:45 | disposition home or self-care (01) ==
LOC: SDC 15:37
PROVIDERS: ATTEND Internal Medicine
DX: T67.3XXA Heat exhaustion, anhydrotic, initial encounter (principal)
CPT/HCPCS: 36415; 80053; 82550; 83735; 83874; 96360; 96361